=== PATIENT | female | born 1955 ===

== ENCOUNTER → 2018-06-13 | Day surgery (SDC) | payer OTHER ==
[~2018-06-13] MED LIST: CIPRO500 MG/5 M; CRESTOR5 MG PO; GABAPENTIN600 MG; SYNTROID PO; TAMOXIFEN CITRA20 MG PO; TRAM1TAB98
== END | disposition home or self-care (01) ==
LOC: ADM 05-02 09:00 → CIR.AMB 08:30
DX: M19.041 Primary osteoarthritis, right hand (principal); M65.311 Trigger thumb, right thumb; M65.341 Trigger finger, right ring finger

== ENCOUNTER 2018-06-17 20:40 | Emergency (ER) | payer OTHER ==
[~2018-06-17] VITALS: Ht 162.6 cm; Wt 65.8 kg
[~2018-06-17 20:40] MED LIST changes: -CIPRO500 MG/5 M; -GABAPENTIN600 MG; -TRAM1TAB98
[2018-06-17] MEDS ORDERED: GABAPENTIN600 MG (21:27)
[2018-06-17] MEDS ORDERED: CIPRO500 MG/5 M (21:28)
[2018-06-17] MEDS ORDERED: TRAM1TAB98 (21:28)
== END 2018-06-17 22:50 | disposition home or self-care (01) ==
LOC: ER 20:40
DX: R60.0 Localized edema (principal)